=== PATIENT | female | born 1990 | race American Indian/Alaskan Native ===

== ENCOUNTER 2019-07-14 13:55 | Outpatient (CLI) | payer OTHER ==
[2019-07-14] MEDS ORDERED: OBSTETRIX DHA1 EACH PO (15:10)
== END 2019-07-14 19:05 | disposition home or self-care (01) ==
LOC: PRENATAL 13:55 → OBS/DEL 13:55
DX: O26.892 Other specified pregnancy related conditions, second trimester (principal); O35.8XX0 Maternal care for other (suspected) fetal abnormality and damage, not applicable or unspecified; Z04.1 Encounter for examination and observation following transport accident; O36.80X0 Pregnancy with inconclusive fetal viability, not applicable or unspecified; Z34.02 Encounter for supervision of normal first pregnancy, second trimester; V49.88XA Car occupant (driver) (passenger) injured in other specified transport accidents, initial encounter; Y93.89 Activity, other specified; Y92.488 Other paved roadways as the place of occurrence of the external cause; Y99.8 Other external cause status